=== PATIENT | male | born 1965 | race Caucasian/White ===

== ENCOUNTER 2022-05-22 13:03 | Outpatient (REF) | payer OTHER, SELFPAY ==
--- NOTE | ~2022-05-22 | US_ITS ---
EXAMINATION: US SCROTUM CLINICAL INFORMATION: Benign neoplasm of unspecified testis. COMPARISON: None. TECHNIQUE: A sonogram of the scrotum was performed assessing mclean-scale appearance and color Doppler flow. Spectral Doppler analysis of the arterial and venous flow were performed in the testes bilaterally. FINDINGS: RIGHT: Right testicle measures 5.1 x 2.5 x 3.1 cm, volume 20.6 mL. No focal testicular parenchymal lesions are visualized. Spectral Doppler analysis of the arterial and venous flow is normal in the right testis. There is 0.2 x 5.2 cm echogenic lesion adjacent to the superior pole of testis, likely appendix testis. Right epididymal head is normal in size. There is a anechoic epididymal head cyst measuring 1.1 x 0.6 x 0.6 cm. No right hydrocele or varicocele is seen. Right epididymal Doppler flow is normal. LEFT: Left testicle measures 4.3 x 2.5 x 3.6 cm, volume 20.2 mL. No focal testicular parenchymal lesions are visualized. Spectral Doppler analysis of the arterial and venous flow is normal in the left testis. Left epididymal head is normal in size. No left varicocele is seen. There is mild hydrocele. Adjacent to the hydrocele is an echogenic fluid collection, question large spermatocele. Left epididymal Doppler flow is normal. US/US scrotum IMPRESSION: Normal-appearing testes with normal vascular flow. Left hydrocele with probable large spermatocele. Right epididymal cyst. Suspect right appendix testis along the superior pole
== END 2022-05-22 13:04 | disposition home or self-care (01) ==
LOC: HO.US 13:03
PROVIDERS: Visit Provider Nurse Practitioner Family
DX: D29.20 Benign neoplasm of unspecified testis (principal)
CPT/HCPCS: 76870

== ENCOUNTER 2022-06-13 15:46 | Outpatient (REF) | payer OTHER, SELFPAY ==
[2022-06-13 17:26] LABS: Urine Cytology See Pathology rpt
== END 2022-06-13 15:47 | disposition home or self-care (01) ==
LOC: HO.LAB 15:46
PROVIDERS: Visit Provider Urology
DX: R31.29 Other microscopic hematuria (principal); N43.40 Spermatocele of epididymis, unspecified
CPT/HCPCS: 88112; 99202

== ENCOUNTER 2022-07-15 14:04 | Outpatient (REF) | payer OTHER, SELFPAY ==
--- NOTE | ~2022-07-15 | CT_ITS ---
EXAMINATION: CT ABDOMEN AND PELVIS WITHOUT AND WITH CONTRAST CLINICAL INFORMATION: Microscopic hematuria. COMPARISON: None. TECHNIQUE: Multidetector volumetric imaging was performed of the abdomen and pelvis before and after the IV administration of 85 mL of Omnipaque 350 intravenous contrast. Sagittal and coronal reformatted images were obtained on the technologist's workstation. This CT examination was performed using dose optimization techniques as appropriate, variously including the following: *Automated exposure control *Adjustment of mA and/or kV according to patient size (this includes techniques or standardized protocols for targeted exams where dose is matched to indication/reason for exam; i.e. extremities or head) *Use of iterative reconstruction technique DLP: 345 mGy-cm. FINDINGS: LUNG BASES: The visualized lung bases are unremarkable. LIVER, GALLBLADDER, AND BILIARY TREE: The liver is normal in size, shape, and attenuation. 6 mm hypodensity seen in left hepatic lobe segment 4A and right hepatic lobe probable small cyst. No intrahepatic ductal dilatation. The gallbladder is unremarkable with no evidence of radiopaque gallstones, gallbladder wall thickening, or obvious pericholecystic inflammatory changes. PANCREAS: The pancreas is unremarkable. CBD measures 8 mm and slightly prominent. SPLEEN: Unremarkable. ADRENAL GLANDS: Unremarkable. KIDNEYS AND URETERS: On noncontrast CT, there are no radiopaque renal calculi. Postcontrast, there is symmetrical bilateral cortical nephrograms. Right kidney measures 10.7 cm in length. No enhancing lesion seen. There is excretion of contrast opacifying bilateral kidney pelvises and the proximal ureter. The ureters are not optimally opacified. However, no dilation of ureters seen to suspect hydronephrosis or intraluminal filling defect. BLADDER: The bladder is nondistended with excreted urinary contrast within. No bladder wall thickening. GASTROINTESTINAL TRACT: There is scattered stool and gas seen throughout the colon without significant distention. The small bowel loops are normal caliber. Appendix is not seen. There is no free air or free fluid. ABDOMINAL WALL: No significant hernia is appreciated. LYMPH NODES: Normal. VASCULAR: There is arthroscopic calcification of abdominal aorta. No aneurysmal dilatation seen. PELVIC VISCERA: No free air or free fluid seen. The prostate gland is normal size with central gland calcification. OSSEOUS STRUCTURES: No aggressive lytic or sclerotic process seen. CT/CT abdomen pelvis wo/w IV con IMPRESSION: 1. No radiopaque urolith or hydroureteronephrosis. 2. Mild constipation. Fleischner guidelines were followed.
[2022-07-15] MEDS: iohexoL 350 MG/ML 100 ML INFUS..BTL IV (15:22)
[2022-07-16 08:05] LABS: Creatinine POC 0.7 mg/dL (0.5-1.4); GFR POC > 60
== END 2022-07-15 14:05 | disposition home or self-care (01) ==
LOC: HO.CT 14:04
PROVIDERS: Visit Provider Urology
DX: R31.29 Other microscopic hematuria (principal)
CPT/HCPCS: 74178; 82565; Q9967

== ENCOUNTER → 2022-08-16 10:58 | Outpatient (BNVA) | payer OTHER, SELFPAY | PROVIDERS: PCP Nurse Practitioner Family; Visit Provider Urology | DX: R97.20 Elevated prostate specific antigen [PSA] (principal); N40.1 Benign prostatic hyperplasia with lower urinary tract symptoms; R31.29 Other microscopic hematuria; N43.40 Spermatocele of epididymis, unspecified | CPT/HCPCS: 52000; 99212 ==

== ENCOUNTER 2022-08-27 06:43 | Day surgery (SDC) | payer OTHER, SELFPAY ==
[2022-08-27 06:58] VITALS: BMI 17.6
[2022-08-27 07:05] VITALS: BP 125/90; PULSE 95; RESP 16; TEMP 36.3; O2SAT 98
--- NOTE | 2022-08-27 07:27 | PC.NURSE ---
Patient brought small pocket knife in backpack to preop. Security called and labeled knife given to officer. Patient aware knife will be returned after procedure when picked up at security.
[2022-08-27] MEDS: Lactated Ringers 1,000 ML 80 ML IVCONT (07:28)
--- NOTE | 2022-08-27 07:50 | MHC.SHP ---
Pre-Procedural Eval Section A Date of Service: 08/27/22 The patient is an INPATIENT: No Section B Chief Complaint: Other microscopic hematuria Allergies: Allergies Allergy/AdvReac Type Severity Reaction Status Date / Time No Known Allergies Allergy Verified 08/27/22 06:56 Plan Diagnosis/Plan: Unchanged I have reviewed the history and physical and performed a pertinent physical examination on my patient. No changes have occurred unless specified. Cystoscopy bladder biopsy. Discussed risks to include but not limited to, blood in the urine, burning with urination, urgency. Time Spent With Patient Time: Total time managing care of this patient today ____ minutes.
--- NOTE | 2022-08-27 08:26 | W.PM.OPN ---
Operative Note Operative Note Date of Service: 08/27/22 Narrative: PREOP DIAGNOSIS: Microscopic hematuria, bladder irregularity POSTOP DIAGNOSIS: microscopic hematuria, bladder wall thickening PROCEDURE: CYSTOSCOPY , bladder biopsy SURGEON: Suki Jose MD ANESTHESIA: general Indications: Carlos is a 57-year-old , nicotine dependence, being evaluated due to microscopic hematuria, office cystoscopy noted bladder wall irregularity. He is being brought in for further evaluation and bladder biopsy Details of procedure: The patient was brought into the operating room placed on the OR table in supine position. 2 g of Ancef IV. General anesthesia was administered. The patient was repositioned into lithotomy position, prepped and draped in the usual sterile fashion. Time-out was done per protocol. 2% lidocaine jelly was passed transurethrally, the 22 fr cystoscope was placed transurethrally into the bladder. the bulbous urethra was within normal limits. The prostatic urethra noted elevated median lobe causing some obstruction. The right and left ureteral orifices were visualized. The entire bladder was visualized. There were moderate trabeculations noted. There were prominent vasculature noted. There were no suspicious bladder lesions seen. Random bladder biopsy was taken from the posterior bladder wall and left lateral wall. The Bugbee electrode was used to obtain hemostasis. The cystoscope was removed. 2% lidocaine urojet was passed transurethrally into the bladder. The patient was brought out of anesthesia and taken to recovery in stable condition. Complications: None Drains: None.
[2022-08-27 08:40] VITALS: BP 91/50; PULSE 55; RESP 13; TEMP 36.2; O2SAT 99
[2022-08-27 08:45] VITALS: BP 86/53; PULSE 54; RESP 12; O2SAT 99
[2022-08-27 08:50] VITALS: BP 86/53; PULSE 57; RESP 14; O2SAT 99
[2022-08-27 08:55] VITALS: BP 97/61; PULSE 52; RESP 17; O2SAT 99
[2022-08-27] MEDS: Phenazopyridine HCL 200 MG TABLET PO (09:09)
[2022-08-27 09:15] VITALS: BP 115/82; PULSE 71; RESP 18; TEMP 36.2; O2SAT 100
--- NOTE | 2022-08-27 12:03 | HO.ANESPROP2 ---
HPI - Anesthesia Eval Consult details Narrative: hematuria microscopic PMFSH Active Problems Active Problems: All Active Problems (Updated 08/16/22 @ 16:11 by Suki Jose MD) Hydrocele (Acute) Spermatocele (Acute) Microscopic hematuria (Acute) Screening PSA (prostate specific antigen) (Acute) Elevated PSA (Acute) Family History Family history of problems with anesthesia: No Surgical History Surgical History (Updated 08/27/22 @ 06:56 by Luiza Monterroso) Hx of appendectomy History of Problems with Anesthesia: No Social History Social History Patient Tobacco Use Status: Current someday Tobacco user Tobacco use type: Cigarette Cigarette Packs Per Day: 0.5 Cigarettes Per Day: 10.0 Years Smoked: 30 Meds Allergies Allergy/AdvReac Type Severity Reaction Status Date / Time No Known Allergies Allergy Verified 08/27/22 06:56 Home Medications Medication Instructions Recorded Confirmed Last Taken Type ibuprofen 2 tab PO NEEDED PRN Headache 08/27/22 08/27/22 08/24/22 History 400 mg Exam Exam Date and Time: August 27, 2022 1203 Height,Weight and Vital Signs: Height 5 ft 7 in Weight 51.256 kg Last Vital Signs Temp 97.2 F 08/27/22 09:15 Pulse 71 08/27/22 09:15 Resp 18 08/27/22 09:15 BP 115/82 08/27/22 09:15 Pulse Ox 100 08/27/22 09:15 O2 Del Method 08/27/22 09:15 O2 Flow Rate 3 08/27/22 08:55 Airway Mallampati Class: II TM Dist: >3cm Neck ROM: Full Heart: rr Lungs: cta Assessment and Plan Final Anesthetic Review Family History of Problems with Anesthesia: No History of Problems with Anesthesia: No NPO: Yes ASA Class: II Final Preanesthetic Review: No Changes in Pt Med Stat, Meds/Allgs Chart Reviewed, Consent Obtained/Reviewed and Anes Risks/Benef Reviewed Patient Risk: Low Procedure Risk: Low Anesthetic Plan Anesthetic Plan: GA and Agree w/ Assess. and Plan Disposition: Standard PACU
== END 2022-08-27 10:13 | disposition home or self-care (01) ==
PROVIDERS: Visit Provider Urology
PROC: (CPT 52204; principal; 2022-08-27 08:50)
DX: R31.29 Other microscopic hematuria (principal); R97.20 Elevated prostate specific antigen [PSA]; N43.40 Spermatocele of epididymis, unspecified; N32.89 Other specified disorders of bladder; Z79.899 Other long term (current) drug therapy; F12.90 Cannabis use, unspecified, uncomplicated
CPT/HCPCS: 52204; 88305; J0690; J2250; J3010

== ENCOUNTER → 2022-09-11 13:50 | Outpatient (BNVA) | payer OTHER, SELFPAY | PROVIDERS: PCP Podiatrist; Visit Provider Urology | DX: R97.20 Elevated prostate specific antigen [PSA] (principal); R31.29 Other microscopic hematuria; N40.1 Benign prostatic hyperplasia with lower urinary tract symptoms; N43.40 Spermatocele of epididymis, unspecified | CPT/HCPCS: 99212 ==